=== PATIENT | female | born 1950 | race Hispanic/Latino ===

== ENCOUNTER 2017-05-31 12:11 | Observation (INO) | payer MEDICARE ==
[2017-05-31 12:17] VITALS: BMI 31.8
--- NOTE | 2017-05-31 12:24 | ED PDOC ---
Arrival/HPI - General Time Seen by Provider: 05/31/17 12:19 Historian: Patient - History of Present Illness Narrative History of Present Illness (Text): 05/31/17 12:19 A 67 year old female, whose past medical history includes thyroidectomy s/p thyroid cancer in remission since 2008, brought into the emergency department complaining of chest tightness and mild shortness of breath for 1 hour. Patient notes dizziness and an intermittent tingling sensation down her bilateral arms. Patient reports her symptoms began shortly after receiving news about a in the family. Patient denies any fever, chills, nausea, vomiting, abdominal pain, urinary symptoms, cough, headache or any other complaints. Patient denies any recent travel. PMD: Dr. Praveen Cantrell, Dr. Sim Time/Duration: 1 hour Symptom Course: Unchanged Quality: Other Context: Home Past Medical History - Provider Review Nursing Documentation Reviewed: Yes - Cardiac Hx Pacemaker: No - Hematological/Oncological Hx Blood Transfusions: No Hx Blood Transfusion Reaction: No - Psychiatric Hx Emotional Abuse: No Hx Physical Abuse: No Hx Substance Use: No - Anesthesia Hx Anesthesia Reactions: No Hx Malignant Hyperthermia: No - Suicidal Assessment Feels Threatened In Home Enviroment: No Family/Social History - Physician Review Nursing Documentation Reviewed: Yes Family/Social History: No Known Family HX Hx Alcohol Use: No Hx Substance Use: No Allergies/Home Meds Allergies/Adverse Reactions: Allergies codeine Allergy (Verified 05/31/17 12:31) ANAPHYLAXIS Home Medications: Home Meds Medication Instructions Recorded Confirmed Dexlansoprazole [Dexilant] 30 mg PO DAILY 05/31/17 06/01/17 Levothyroxine [Synthroid] 100 mcg PO DAILY 05/31/17 06/01/17 Alprazolam [Xanax] 0.25 mg PO BID 06/01/17 06/01/17 amLODIPine [Norvasc] 5 mg PO DAILY 06/01/17 06/01/17 Review of Systems - Physician Review All systems were reviewed & negative as marked: Yes - Review of Systems Constitutional: absent: Fevers, Night Sweats Respiratory: SOB. absent: Cough Cardiovascular: Chest Pain (tightness) Gastrointestinal: absent: Abdominal Pain, Nausea, Vomiting Neurological: Dizziness, Other (Tingling sensation to bilateral arms). absent: Headache Physical Exam Vital Signs Temp Pulse Resp BP Pulse Ox 05/31/17 15:42 98.6 F 70 14 174/81 H 97 05/31/17 12:57 68 18 160/73 H 100 05/31/17 12:15 98.6 F 66 18 163/110 H 98 Appearance: Positive for: Well-Appearing, Non-Toxic, Comfortable Pain Distress: None Mental Status: Positive for: Alert and Oriented X 3 - Systems Exam Head: Present: Atraumatic, Normocephalic Pupils: Present: PERRL Extroacular Muscles: Present: EOMI Conjunctiva: Present: Normal Mouth: Present: Moist Mucous Membranes Neck: Present: Normal Range of Motion Respiratory/Chest: Present: Clear to Auscultation, Good Air Exchange. No: Respiratory Distress, Accessory Muscle Use Cardiovascular: Present: Regular Rate and Rhythm, Normal S1, S2. No: Murmurs Abdomen: Present: Normal Bowel Sounds. No: Tenderness, Distention, Peritoneal Signs Back: Present: Normal Inspection Upper Extremity: Present: Normal Inspection, NORMAL PULSES. No: Cyanosis, Edema Lower Extremity: Present: Normal Inspection, NORMAL PULSES. No: Edema Neurological: Present: GCS=15, Speech Normal Skin: Present: Warm, Dry, Normal Color. No: Rashes Psychiatric: Present: Alert, Oriented x 3, Normal Insight, Normal Concentration Medical Decision Making ED Course and Treatment: 05/31/17 12:28 EKG shows NSR at 66 BPM with normal axis, normal intervals, no STEMI. Interpreted by me. Patient reported feeling "weird". Denied any chest pain. Will repeat EKG. 05/31/17 12:54 Repeat EKG shows NSR at 64 BPM, similar to prior. Interpreted by me. Report Date : 05/31/2017 13:46:23 Procedure: Chest xray Dictator : Vince Dave MD IMPRESSION: No active disease. - Lab Interpretations Lab Results: 05/31/17 12:45 05/31/17 12:45 Lab Results 05/31/17 12:45: D-Dimer, Quantitative 226 05/31/17 12:45: Sodium 139, Potassium 3.9, Chloride 106, Carbon Dioxide 18 L, Anion Gap 19, BUN 15, Creatinine 0.6 L, Est GFR ( Amer) > 60, Est GFR ( Non-Af Amer) > 60, Random Glucose 100, Calcium 9.9, Total Bilirubin 0.8, AST 26 , ALT 40, Alkaline Phosphatase 87, Troponin I < 0.01, Total Protein 7.6, Albumin 4.6, Globulin 3.0, Albumin/Globulin Ratio 1.6 05/31/17 12:45: WBC 6.7, RBC 4.86, Hgb 14.8, Hct 42.5, MCV 87.4, MCH 30.5, MCHC 34.8, RDW 13.0, Plt Count 286, MPV 10.3, Gran % 58.7, Lymph % (Auto) 30.4, [place] % (Auto) 9.0 H, Eos % (Auto) 1.5, Baso % (Auto) 0.4, Gran # 3.93, Lymph # 2.0, [place]atte # 0.6, Eos # 0.1, Baso # 0.03 - RAD Interpretation Radiology Orders: 05/31/17 12:41 CHEST PORTABLE [RAD] Stat - Medication Orders Current Medication Orders: Discontinued Medications Alprazolam (Xanax) 0.5 mg PO STAT STA PRN Reason: Protocol Stop: 05/31/17 12:51 Last Admin: 05/31/17 12:57 Dose: 0.5 mg Amlodipine Besylate (Norvasc) 5 mg PO DAILY [facility] Last Admin: 06/01/17 09:56 Dose: 5 mg MAR Pulse and Blood Pressure Document 06/01/17 09:56 JOSE (Rec: 06/01/17 09:56 JOSE [id number]) Pulse Pulse Rate (60-90) 62 Blood Pressure Blood Pressure (100/60-150/90) 136/72 Aspirin (Aspirin Chewable) 81 mg PO STAT STA Stop: 05/31/17 12:43 Last Admin: 05/31/17 13:22 Dose: 81 mg Aspirin (Ecotrin) 81 mg PO DAILY [facility] Last Admin: 06/01/17 09:56 Dose: 81 mg Levothyroxine Sodium (Synthroid) 100 mcg PO 0600 [facility] Last Admin: 06/01/17 06:50 Dose: 100 mcg Pantoprazole Sodium (Protonix Ec Tab) 40 mg PO 0600 [facility] Last Admin: 06/01/17 06:50 Dose: 40 mg Pneumococcal Polyvalent Vaccine (Pneumovax 23 Vaccine) 0.5 ml IM .ONCE ONE Stop: 05/31/17 21:50 Last Admin: 05/31/17 21:57 Dose: Immunization Registry Document 05/31/17 21:57 KTR (Rec: 05/31/17 21:57 KTR [id number]) Immunization Registry Consent Date 05/31/17 - Scribe Statement The provider has reviewed the documentation as recorded by the Scribe Becky Harper Provider Scribe Attestation: All medical record entries made by the Scribe were at my direction and personally dictated by me. I have reviewed the chart and agree that the record accurately reflects my personal performance of the history, physical exam, medical decision making, and the department course for this patient. I have also personally directed, reviewed, and agree with the discharge instructions and disposition. Disposition/Present on Arrival - Present on Arrival Any Indicators Present on Arrival: No - Disposition Have Diagnosis and Disposition been Completed?: Yes Diagnosis: Chest pain Disposition: HOSPITALIZED Disposition Time: 15:15 Condition: STABLE
[2017-05-31 12:58] LABS: BASO # 0.03 K/mm3 (0.0-2.0); BASO % 0.4 % (0.0-3.0); EOS # 0.1 (0.0-0.7); EOS % 1.5 % (1.5-5.0); GRAN # 3.93 (1.4-6.5); GRAN % 58.7 % (50.0-68.0); HEMOGLOBIN 14.8 g/dL (12.0-16.0); LYMPH % 30.4 % (22.0-35.0); MEAN CELL VOLUME 87.4 fl (80.0-105.0); MEAN CORPUSCULAR HEMOGLOBIN 30.5 pg (25.0-35.0); MEAN CORPUSCULAR HGB CONC 34.8 g/dl (31.0-37.0); MEAN PLATELET VOLUME 10.3 fl (7.0-11.0); MONO # 0.6 (0.1-0.6); RBC 4.86 10^6/uL (3.5-6.1); WHITE BLOOD COUNT 6.7 10^3/ul (4.5-11.0)
[2017-05-31 13:04] LABS: ALB/GLOB RATIO 1.6 (1.1-1.8); ALBUMIN 4.6 g/dL (3.0-4.8); ALT/SGPT 40 U/L (7-56); AST/SGOT 26 U/L (14-36); BLOOD UREA NITROGEN 15 mg/dL (7-21); CALCIUM 9.9 mg/dL (8.4-10.5); GFR AFRICAN-AMERICAN > 60; GFR NON-AFRICAN AMERICAN > 60
[2017-05-31 13:16] LABS: TROPONIN I < 0.01 ng/mL
--- NOTE | 2017-05-31 13:47 | RAD ---
HISTORY: Chest pain COMPARISON: Comparison made with CT scan chest dated 07/02/2016. . FINDINGS: LUNGS: No acute consolidation. Previously noted minor scarring changes left lung apex poorly seen on this study compared to high-resolution CT scan of the chest PLEURA: No significant pleural effusion identified, no pneumothorax apparent. CARDIOVASCULAR: Normal. OSSEOUS STRUCTURES: No significant abnormalities. VISUALIZED UPPER ABDOMEN: Normal. OTHER FINDINGS: None. IMPRESSION: No active disease.
[2017-05-31] MEDS: Pantoprazole 40 mg EC Tab PO SCH (17:38)
--- NOTE | 2017-05-31 20:02 | CARD ---
APPROVED REPORT EKG Measurement Heart [id number] <Conclusion> Normal sinus rhythm Normal ECG
[2017-05-31 21:43] LABS: TROPONIN I < 0.01 ng/mL
[2017-05-31] MEDS ORDERED: Pneumococcal 23-Valent Vaccine IM ONE (21:49)
[2017-05-31] MEDS ORDERED: Influenza Vaccine 60 mcg/0.5 mL SYR (4YR UP) IM ONE (21:49)
[2017-06-01 00:31] VITALS: TEMP 98.2
[2017-06-01 05:50] VITALS: RESP 18; O2SAT 97
[2017-06-01] MEDS ORDERED: Levothyroxine 100 MCG TAB PO SCH (06:00)
[2017-06-01] MEDS: Pantoprazole 40 mg EC Tab PO SCH (06:50)
[2017-06-01 07:11] LABS: TROPONIN I < 0.01 ng/mL
--- NOTE | 2017-06-01 08:45 | HP ---
05/31/2017 HISTORY OF PRESENT ILLNESS: Ms. Hamilton is a 67-year-old female admitted to the hospital with left-sided chest pain for an hour and shortness of breath. She has a history of thyroid cancer diagnosed in 2008, has been in remission since then. She is complaining of dizziness and intermittent tingling sensation in both arms. No nausea, no vomiting. No radiation of pain. No epigastric pain. No fever, no cough with expectoration. No history of hypertension. History of lung nodule. PAST MEDICAL HISTORY: Thyroid cancer in remission. PAST SURGICAL HISTORY: Thyroid surgery. ALLERGIES: CODEINE CAUSES ANAPHYLAXIS. FAMILY HISTORY: Noncontributory. SOCIAL HISTORY: Lives at home. PERSONAL HISTORY: Nonsmoker. No history of alcohol abuse. HOME MEDICATIONS: Synthroid 100 mcg daily and duloxetine 30 mg p.o. daily. REVIEW OF SYSTEMS: As per HPI. A 12-point rest of systems reviewed and negative. PHYSICAL EXAMINATION: GENERAL: Comfortable in bed in no acute distress. VITAL SIGNS: Temperature is 98.6, heart rate is 66 per minute, respiratory rate is 18 per minute, blood pressure is 160/70, and pulse ox is 100% room air. HEENT: Normal. CHEST: Air entry present and equal bilaterally. No added sounds. CARDIOVASCULAR: S1 and S2 normal. No murmur. No gallop. ABDOMEN: Soft and nontender. No hepatosplenomegaly. EXTREMITIES: No edema. SKIN: Warm and dry, no rashes or petechiae. NEUROLOGIC: Alert and oriented x3. No focal sensory motor deficit. SPINE: Normal. LABORATORY DATA: White count 6.7, hemoglobin 14.3, hematocrit 42.5, and platelet count 286. Sodium 139, potassium 3.9, BUN 15, creatinine 0.6, and glucose 100. Cardiac enzymes not elevated. ASSESSMENT: Left-sided chest pain rule out acute chest syndrome, history of thyroid cancer in remission. PLAN: We will admit to tele monitoring. Aspirin 81 mg daily. Blood pressure elevated in the ER. We will give Norvasc 5 mg daily. Continue Synthroid 100 mcg daily. Protonix 40 mg daily. Cardiology consultation Dr. Gomez requested. We will monitor serial troponins, three sets of troponin negative. We will await Dr. Gomez's input. She can have a cardiac stress test as outpatient. Chest x-ray did not show any infiltrate. Candi Moreno MD MARCIA
[2017-06-01 10:01] VITALS: BP 136/72; PULSE 62
--- NOTE | 2017-06-01 16:53 | CARD ---
APPROVED REPORT EKG Measurement Heart [id number] ID [id number] <Conclusion> Normal sinus rhythm Normal ECG
--- NOTE | 2017-06-01 20:48 | CON ---
DATE: 06/01/2017 REQUESTING PHYSICIAN: Dr. Moreno. REASON FOR CONSULTATION: Chest pain. HISTORY OF PRESENT ILLNESS: This is a 67-year-old woman with reported history of borderline hyperlipidemia who presented to the Emergency Room with intense retrosternal chest discomfort. She has been under great deal of stress lately as two family members recently , one of whom was only a 38-year-old. Upon hearing of the of the second family member, recently, she developed intense retrosternal chest discomfort associated with dyspnea, bilateral arm pain, tingling in her arms. She became concerned and then called the emergency squad who was brought into the Emergency Room. Initial electrocardiogram was unremarkable and cardiac enzymes have been negative. She denies a prior cardiac history. She was hypertensive upon arrival, but has known history of hypertension in the past. She is not diabetic. She states her cholesterol was noted to be borderline elevated on blood work from last year. There is no family history of premature heart disease. She had smoked briefly, but quit over 40 years ago. PAST MEDICAL HISTORY: Notable for thyroid cancer for which she underwent thyroidectomy in 2008. She also has a history of gastroesophageal reflux disease. MEDICATIONS AT HOME: Included Dexilant and Synthroid. ALLERGIES: SHE HAS HAD A REACTION TO CODEINE IN THE PAST. SOCIAL HISTORY: She is . Lives with her family. She states she is fairly active and denies any exertional symptoms. FAMILY HISTORY: Mother in her 70s from complications of Parkinson's disease. Her father from age-related illness at 83. No family history of premature heart disease. REVIEW OF SYSTEMS: A 10-point review of systems is otherwise unremarkable. PHYSICAL EXAMINATION: GENERAL: She is anxious, appearing middle-aged woman. VITAL SIGNS: Her blood pressure is 136/64 with a pulse of 60 and sinus, respirations are 16. She is afebrile. HEENT: Normocephalic, atraumatic. NECK: Supple. No JVD noted. CHEST: Few scattered rhonchi heard. HEART: PMI normal position, no pathological murmurs or gallops noted. ABDOMEN: Soft and nontender with normoactive bowel sounds. EXTREMITIES: No clubbing, cyanosis, or edema. SKIN: Warm and dry. PSYCHIATRIC: Normal mood and affect. NEUROLOGIC: Alert and oriented x3. No gross motor or sensory is appreciable. DIAGNOSTIC DATA: Electrocardiogram reveals sinus rhythm, nonspecific ST-T abnormalities. Frequent PVCs are noted on telemetry monitoring. Chest x-ray reveals normal cardiac silhouette with clear lung lehman. Admission labs revealed a white count 6.7, hemoglobin and hematocrit are 14.8 and 42.5 with a platelet count 286,000. Potassium 3.9, BUN and creatinine 15 and 0.6. Two sets of cardiac enzymes are normal. IMPRESSION: 1. Chest pain suspect this is primarily due to severe emotional stress and possible gastroesophageal spasm, symptoms are less likely cardiac in nature. 2. Rest of problems as noted. RECOMMENDATIONS: If her first set of cardiac enzymes are negative and she has no further symptoms, discharge home today would be advisable. Given her age and history of hyperlipidemia as well as frequent PVCs noted and monitored. An outpatient stress test would be advisable for completion of her workup. Thank you for this consultation. We will be happy to follow as needed. Rogelio Hutchinson MD MTDGigi
--- NOTE | 2017-06-02 18:04 | CP.PCM.DIS ---
Provider - Provider Date of Admission: 05/31/17 15:15 Attending physician: Candi Moreno MD Primary care physician: Ludin Sim MD Time Spent in preparation of Discharge (in minutes): 60 Hospital Course - Lab Results Lab Results: Most Recent Lab Values WBC 6.7 10^3/ul (4.5-11.0) 05/31/17 12:45 RBC 4.86 10^6/uL (3.5-6.1) 05/31/17 12:45 Hgb 14.8 g/dL (12.0-16.0) 05/31/17 12:45 Hct 42.5 % (36.0-48.0) 05/31/17 12:45 MCV 87.4 fl (80.0-105.0) 05/31/17 12:45 MCH 30.5 pg (25.0-35.0) 05/31/17 12:45 MCHC 34.8 g/dl (31.0-37.0) 05/31/17 12:45 RDW 13.0 % (11.5-14.5) 05/31/17 12:45 Plt Count 286 10^3/uL (120.0-450.0) 05/31/17 12:45 MPV 10.3 fl (7.0-11.0) 05/31/17 12:45 Gran % 58.7 % (50.0-68.0) 05/31/17 12:45 Lymph % (Auto) 30.4 % (22.0-35.0) 05/31/17 12:45 Harding % (Auto) 9.0 % (1.0-6.0) H 05/31/17 12:45 Eos % (Auto) 1.5 % (1.5-5.0) 05/31/17 12:45 Baso % (Auto) 0.4 % (0.0-3.0) 05/31/17 12:45 Gran # 3.93 (1.4-6.5) 05/31/17 12:45 Lymph # 2.0 (1.2-3.4) 05/31/17 12:45 Harding # 0.6 (0.1-0.6) 05/31/17 12:45 Eos # 0.1 (0.0-0.7) 05/31/17 12:45 Baso # 0.03 K/mm3 (0.0-2.0) 05/31/17 12:45 D-Dimer, Quantitative 226 ng/mL (0-243) 05/31/17 12:45 Sodium 139 mmol/L (132-148) 05/31/17 12:45 Potassium 3.9 mmol/L (3.6-5.0) 05/31/17 12:45 Chloride 106 mmol/L (98-107) 05/31/17 12:45 Carbon Dioxide 18 mmol/L (21-33) L 05/31/17 12:45 Anion Gap 19 (10-20) 05/31/17 12:45 BUN 15 mg/dL (7-21) 05/31/17 12:45 Creatinine 0.6 mg/dl (0.7-1.2) L 05/31/17 12:45 Est GFR ( Amer) > 60 05/31/17 12:45 Est GFR (Non-Af Amer) > 60 05/31/17 12:45 Random Glucose 100 mg/dL (70-110) 05/31/17 12:45 Calcium 9.9 mg/dL (8.4-10.5) 05/31/17 12:45 Total Bilirubin 0.8 mg/dL (0.2-1.3) 05/31/17 12:45 AST 26 U/L (14-36) 05/31/17 12:45 ALT 40 U/L (7-56) 05/31/17 12:45 Alkaline Phosphatase 87 U/L (38-126) 05/31/17 12:45 Lactate Dehydrogenase 426 U/L (333-699) 06/01/17 06:00 Total Creatine Kinase 57 U/L (35-230) 06/01/17 06:00 Troponin I < 0.01 ng/mL 06/01/17 06:00 Total Protein 7.6 g/dL (5.8-8.3) 05/31/17 12:45 Albumin 4.6 g/dL (3.0-4.8) 05/31/17 12:45 Globulin 3.0 gm/dL 05/31/17 12:45 Albumin/Globulin Ratio 1.6 (1.1-1.8) 05/31/17 12:45 - Hospital Course Hospital Course: 06/01/2017 Left-sided chest pain rule out acute chest syndrome, history of thyroid cancer in remission Hypertension, new onset HOSPITAL COURSE: Ms. Hamilton is a 67-year-old female admitted to the hospital with left-sided chest pain for an hour and shortness of breath. She has a history of thyroid cancer diagnosed in 2008, has been in remission since then. She is complaining of dizziness and intermittent tingling sensation in both arms. No nausea, no vomiting. No radiation of pain. No epigastric pain. No fever, no cough with expectoration. No history of hypertension. History of lung nodule. Three sets of cardiac enzymes negative. She is being discharged today. PAST MEDICAL HISTORY: Thyroid cancer in remission. PAST SURGICAL HISTORY: Thyroid surgery. ALLERGIES: CODEINE CAUSES ANAPHYLAXIS. FAMILY HISTORY: Noncontributory. SOCIAL HISTORY: Lives at home. PERSONAL HISTORY: Nonsmoker. No history of alcohol abuse. HOME MEDICATIONS: Synthroid 100 mcg daily and duloxetine 30 mg p.o. daily. REVIEW OF SYSTEMS: As per HPI. A 12-point rest of systems reviewed and negative. PHYSICAL EXAMINATION: GENERAL: Comfortable in bed in no acute distress. VITAL SIGNS: reviewed. HEENT: Normal. CHEST: Air entry present and equal bilaterally. No added sounds. CARDIOVASCULAR: S1 and S2 normal. No murmur. No gallop. ABDOMEN: Soft and nontender. No hepatosplenomegaly. EXTREMITIES: No edema. SKIN: Warm and dry, no rashes or petechiae. NEUROLOGIC: Alert and oriented x3. No focal sensory motor deficit. SPINE: Normal. LABORATORY DATA: reviewed. Dispo : discharge home. Discharge meds : aspirin 81 mg, norvasc 5 mg daily, Synthyroid 100 mcgm. FU : cardiology with Dr. Gomez. Dr. Moreno for thyroid cancer. Dr. Sim Candi Moreno MD - Date & Time of H&P Date of H&P: 07/02/17 Time of H&P: 12:00 Discharge Plan - Follow Up Plan Condition: GOOD Disposition: HOME/ ROUTINE Instructions: Alprazolam (By mouth), Amlodipine (By mouth), Chronic Hypertension (GEN), Anxiety (GEN) Additional Instructions: Follow up with Dr Sim in 1-2 weeks.
== END 2017-06-01 14:07 | disposition home or self-care (01) ==
LOC: ED 12:11 → ERH 15:15 → 2RSO 16:37
PROVIDERS: ADMIT Internal Medicine Medical Oncology; ATTEND Internal Medicine Medical Oncology
DX: R07.89 Other chest pain (principal); I10 Essential (primary) hypertension; R42 Dizziness and giddiness; R20.2 Paresthesia of skin; K21.9 Gastro-esophageal reflux disease without esophagitis; Z85.850 Personal history of malignant neoplasm of thyroid; Z87.891 Personal history of nicotine dependence
CPT/HCPCS: 36415; 71010; 80053; 82550; 83615; 84484; 85025; 85378; 93005; 99285; G0378

== ENCOUNTER 2018-04-27 08:16 | Day surgery (SDC) | payer MEDICARE ==
[2018-04-16 13:59] VITALS: BMI 28.8
[2018-04-27] MEDS ORDERED: Propofol 10 mg/ml Inj (20 ML) ONE (09:59)
[2018-04-27] MEDS ORDERED: Sodium Chloride 0.9% 1,000 ML IV SCH (10:30)
[2018-04-27 10:36] VITALS: O2SAT 98
[2018-04-27 11:08] VITALS: BP 167/76; PULSE 61; RESP 16; TEMP 97.5
== END 2018-04-27 11:25 | disposition home or self-care (01) ==
LOC: ENDO 08:16
PROVIDERS: ATTEND Internal Medicine Gastroenterology
DX: K21.0 Gastro-esophageal reflux disease with esophagitis (principal); K22.10 Ulcer of esophagus without bleeding; K29.50 Unspecified chronic gastritis without bleeding; K44.9 Diaphragmatic hernia without obstruction or gangrene; K25.9 Gastric ulcer, unspecified as acute or chronic, without hemorrhage or perforation; K29.80 Duodenitis without bleeding
CPT/HCPCS: 43239; 88305; 88342; J2704; J7030

== ENCOUNTER 2018-06-25 11:43 | Outpatient (CLI) | payer MEDICARE | END 2018-06-25 11:44 | disposition home or self-care (01) | LOC: RAD 11:43 ==

== ENCOUNTER 2018-09-07 06:18 | Day surgery (SDC) | payer MEDICARE ==
[2018-08-31 17:28] VITALS: BMI 29.7
[2018-09-07] MEDS ORDERED: Lidocaine 1% Inj (20ml) ONE (08:06)
[2018-09-07] MEDS ORDERED: Propofol 10 mg/ml Inj (20 ML) ONE ×2 (08:06→08:27)
[2018-09-07] MEDS ORDERED: Sodium Chloride 0.9% 1,000 ML IV SCH (08:45)
[2018-09-07 09:14] VITALS: O2SAT 99
[2018-09-07 09:55] VITALS: BP 138/78; PULSE 60; RESP 15; TEMP 97.6
== END 2018-09-07 09:56 | disposition home or self-care (01) ==
LOC: ENDO 06:18
PROVIDERS: ATTEND Internal Medicine Gastroenterology
DX: Z12.11 Encounter for screening for malignant neoplasm of colon (principal); K63.5 Polyp of colon; K64.8 Other hemorrhoids; K57.30 Diverticulosis of large intestine without perforation or abscess without bleeding; K63.9 Disease of intestine, unspecified; E03.9 Hypothyroidism, unspecified; I10 Essential (primary) hypertension; Z86.010 Personal history of colon polyps
CPT/HCPCS: 45384; 88305; J2704; J7030; J7040